=== PATIENT | male | born 1970 | race Caucasian/White ===

== ENCOUNTER 2019-10-23 11:04 | Observation (INO) ==
[2019-10-23 11:25] LABS: Hematocrit 46.4 % (37.5-50.1); Hemoglobin 15.9 g/dL (12.9-16.9); Mean Corpuscular HGB Conc 34.3 g/dL (31.6-35.5); Mean Corpuscular Hemoglobin 27.7 pg (28.0-33.3); Mean Corpuscular Volume 80.8 fL (83.0-100.0); Mean Platelet Volume 10.1 fL (9.4-12.4); Platelet Count 306 K/mcL (140-400); Red Blood Count 5.74 M/mcL (4.19-5.50); Red Cell Distribution Width 12.4 % (11.5-14.5); White Blood Count 9.7 K/mcL (4.3-11.1)
[2019-10-23 11:32] LABS: INR 1.1; Prothrombin Time 12.7 Seconds (9.4-12.1)
[2019-10-23 11:35] LABS: Activated Partial Thrombo Time 34.8 Seconds (26.0-36.0)
[2019-10-23] MEDS ORDERED: Isovue-370 500 ML BOTTLE IVP ONE ×3 (11:46→13:57)
[2019-10-23 11:50] LABS: BUN/Creatinine Ratio 13 (6-26); Blood Urea Nitrogen 11 mg/dL (6-20); Calcium 9.4 mg/dL (8.6-10.3); Carbon Dioxide 19 mEq/L (23-29); Chloride 108 mEq/L (98-107); Glucose 113 mg/dL (70-105); Osmolality,Calculated 288 (280-300); Potassium 3.3 mEq/L (3.5-5.1); Sodium 139 mEq/L (136-145); Troponin I < 0.03 ng/mL (< 0.04); eGFR For African Americans > 60 (> 60); eGFR For Non-African Americans > 60 (> 60)
[2019-10-23] MEDS ORDERED: Aspirin 81 MG TAB.CHEW PO STA (12:05)
[2019-10-23] MEDS ORDERED: Perflutren Lipid Microsphere 1.3 ML in 0.9 % Sodium Chloride 8.7 ML IVP PRN (16:31)
[2019-10-24 05:15] LABS: Hematocrit 43.9 % (37.5-50.1); Hemoglobin 14.6 g/dL (12.9-16.9); Mean Corpuscular HGB Conc 33.3 g/dL (31.6-35.5); Mean Corpuscular Hemoglobin 28.4 pg (28.0-33.3); Mean Corpuscular Volume 85.4 fL (83.0-100.0); Mean Platelet Volume 10.5 fL (9.4-12.4); Platelet Count 234 K/mcL (140-400); Red Blood Count 5.14 M/mcL (4.19-5.50); Red Cell Distribution Width 12.8 % (11.5-14.5); White Blood Count 8.1 K/mcL (4.3-11.1)
[2019-10-24 05:35] LABS: Alanine Aminotransferase 58 Units/L (7-52); Alkaline Phosphatase 72 Units/L (34-104); Aspartate Amino Transferase 34 Units/L (13-39); BUN/Creatinine Ratio 14 (6-26); Bilirubin,Total 0.7 mg/dL (0.3-1.0); Blood Urea Nitrogen 11 mg/dL (6-20); Calcium 8.9 mg/dL (8.6-10.3); Carbon Dioxide 23 mEq/L (23-29); Chloride 108 mEq/L (98-107); Cholesterol 132 mg/dL (< 200); Glucose 92 mg/dL (70-105); HDL Cholesterol 33 mg/dL (40-59); LDL Cholesterol,Calculated 77 mg/dL (< 100); Osmolality,Calculated 289 (280-300); Potassium 3.6 mEq/L (3.5-5.1); Sodium 140 mEq/L (136-145); Triglycerides 108 mg/dL (< 150); eGFR For African Americans > 60 (> 60); eGFR For Non-African Americans > 60 (> 60)
[2019-10-24] MEDS ORDERED: FLUoxetine 20 MG CAPSULE PO SCH (09:00)
[2019-10-24 11:03] VITALS: BP 132/88
[2019-10-24 11:11] LABS: Estimated Average Glucose 117 mg/dl; Hemoglobin A1C 5.7 %
== END 2019-10-24 14:16 | disposition home or self-care (01) ==
LOC: EMEROOARM 11:04 → 3BNU 11:04 → SUATTDRO 14:59 → 3BNU 15:24
PROVIDERS: ADMIT Family Medicine; ATTEND Internal Medicine